=== PATIENT | female | born 1945 | race Caucasian/White ===

== ENCOUNTER 2018-01-28 16:22 | Emergency (ER) | payer MEDICARE, OTHER ==
[2018-01-28] MEDS ORDERED: LEVO-3 PO (16:33)
--- NOTE | 2018-01-28 16:34 | ER Report ---
History and Physical Time Seen By MD: 16:34 Hx. of Stated Complaint: COUGH AND SORE THROAT FOR THE LAST 3 DAYS HPI/ROS CHIEF COMPLAINT: cough, sore throat HISTORY OF PRESENT ILLNESS: This is a 73 year old female. She is traveling through. Has been sick with cough, congestion and sore throat for the last few days. Worsened this afternoon as they were passing through on their way to [place]. She is from [place]. Coughing up a little green phlegm. Has some nasal irritation. Sore throat with pain with swallowing. No nausea, but has had some gagging from mucous at times. No fever at this time. REVIEW OF SYSTEMS: As above. Allergies: Coded Allergies: No Known Drug Allergies (Unverified , 01/28/18) Home Meds Active Scripts Guaifenesin/Codeine (GUAIFENESIN-CODEINE SYRUP) 5 Ml Syrp, 5 ML PO Q6H PRN for COUGH, #120 ML 0 Refills Prov:ANKUSH BOLDEN MD 01/28/18 Reported Medications Levothyroxine Sodium (LEVOTHYROXINE SODIUM) 100 Mcg Tablet, 137 MCG PO QDAY, TAB 01/28/18 Reviewed Nurses Notes: Yes Hx Substance Use Disorder: No Hx Alcohol Use: No Constitutional Vital Sign - Last 24 Hours 01/28/18 01/28/18 01/28/18 01/28/18 16:28 16:30 16:52 17:22 Pulse 104 96 91 Resp 24 B/P (MAP) 143/85 (104) 143/85 Pulse Ox 95 95 97 O2 Delivery Room Air Physical Exam General Appearance: The patient is alert, has no immediate need for airway protection, does look ill appearing but non-toxic. Eyes: Pupils equal and round, has some scleral injection. ENT: Normal oral mucosa. Moist mucous membranes. Posterior oropharynx with erythema, but no exudates. Nasal mucosa is erythematous. Tympanic membranes are normal. Neck: Neck is supple and non tender. Has no lymphadenopathy Respiratory: Chest is non tender, lungs are clear to auscultation. Cardiac: regular rate and rhythm Gastrointestinal: Abdomen is soft and non tender, bowel sounds normal. Musculoskeletal: Extremities have full range of motion. Skin: No rashes or lesions. DIFFERENTIAL DIAGNOSIS: After history and physical exam differential diagnosis was considered for upper respiratory infection, likely viral Medical Decision Making Data Points Laboratory Hematology Test 01/28/18 16:50 Influenza Virus Type A (PCR) Negative (NEGATIVE) Influenza Virus Type B (PCR) Negative (NEGATIVE) Chemistry Test 01/28/18 16:50 Influenza Virus Type A (PCR) Negative (NEGATIVE) Influenza Virus Type B (PCR) Negative (NEGATIVE) EKG/Imaging Imaging Examination: CHEST PA AND LAT Comparison: None. History: Cough. Trouble breathing. Findings: Cardiac and hilar contour size is within normal limits. No consolidation, nodule, or peribronchial inflammation. No pneumothorax, edema, or effusion. Osseous structures are intact. IMPRESSION: No evidence of acute cardiopulmonary disease. Report Dictated By: Marques Bah MD at 01/28/2018 5:11 PM ED Course/Re-evaluation ED Course Negative influenza. Negative chest x-ray. Discussed conservative management for upper respiratory infection. Guaifenesin with Codeine provided to help with cough. Decision to Disposition Date: Jan 28, 2018 Decision to Disposition Time: 17:46 Depart Departure Latest Vital Signs Vital Signs Date Time Temp Pulse Resp B/P (MAP) Pulse Ox O2 Delivery O2 Flow Rate FiO2 01/28/18 17:22 91 97 01/28/18 16:30 24 143/85 Room Air Impression: Primary Impression: Upper respiratory infection Condition: Improved Disposition: HOME OR SELF-CARE New Scripts Guaifenesin/Codeine (GUAIFENESIN-CODEINE SYRUP) 5 Ml Syrp 5 ML PO Q6H PRN for COUGH, #120 ML 0 Refills Prov: ANKUSH BOLDEN MD 01/28/18 Patient Instructions: Upper Respiratory Infection (ED) Additional Instructions: You can use over the counter cold medicines during the day. You can use Tylenol and Ibuprofen as needed for pain. Nasal saline can help with the nasal irritation. Rest and increased fluid intake. Guaifenesin with Codeine syrup, 1 teaspoon every 4 hours as needed for cough. Problem Qualifiers Primary Impression: Upper respiratory infection URI type: unspecified viral URI Qualified Codes: J06.9 - Acute upper respiratory infection, unspecified ANKUSH BOLDEN MD Jan 28, 2018 16:34
--- NOTE | 2018-01-28 17:17 | RADIOLOGY IMAGING REPORT ---
FACILITY: PATIENT NAME: Wendy Yost : 1945 MR: [id number] V: [id number] EXAM DATE: ORDERING PHYSICIAN: ANKUSH BOLDEN TECHNOLOGIST: Location: [facility] - [place] Patient: Wendy Yost : 1945 Visit/Account:[id number] Date of Sevice: 01/28/2018 Examination: CHEST PA AND LAT Comparison: None. History: Cough. Trouble breathing. Findings: Cardiac and hilar contour size is within normal limits. No consolidation, nodule, or peribr onchial inflammation. No pneumothorax, edema, or effusion. Osseous structures are intact. IMPRESSION: No evidence of acute cardiopulmonary disease. Report Dictated By: Marques Bah MD at 01/28/2018 5:11 PM Report E-Signed By: Marques Bah MD at 01/28/2018 5:13 PM WSN:[id number]
[2018-01-28] MEDS ORDERED: guaiFENesin/CODEINE 5 ML UDBTL PO ONE (17:45)
[2018-01-28] MEDS ORDERED: ROBC PO (17:47)
[2018-01-28 17:53] VITALS: BP 125/75
== END 2018-01-28 18:03 | disposition home or self-care (01) ==
LOC: ER 16:38
DX: J06.9 Acute upper respiratory infection, unspecified (principal)
CPT/HCPCS: 71046; 87502; 99283; A9270